=== PATIENT | female | born 2000 | race Caucasian/White ===

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

== ENCOUNTER 2024-12-09 14:52 | Outpatient (CLI) | payer OTHER, SELFPAY ==
[2024-12-09 15:54] LABS: TSH (W/Ref FT4) 3.96 uIU/mL (0.36-3.74)
[2024-12-09 16:15] LABS: FREE T4 0.99 ng/dL (0.76-1.46)
[2024-12-09 22:10] LABS: Estradiol 37 pg/mL (See Note)
[2024-12-09 22:19] LABS: FSH 7.7 mIU/mL (See Note)
== END 2024-12-09 14:53 | disposition home or self-care (01) ==
PROVIDERS: PCP Neuromusculoskeletal Medicine & OMM; Visit Provider Obstetrics & Gynecology
DX: N92.0 Excessive and frequent menstruation with regular cycle (principal); N97.9 Female infertility, unspecified
CPT/HCPCS: 36415; 82670; 83001; 84439; 84443

== ENCOUNTER 2025-03-17 09:08 | Outpatient (CLI) | payer OTHER, SELFPAY ==
[2025-03-17 10:47] LABS: Abs Immature Grans 0.03 10^3/uL (0.0-0.06); HCT 39.8 % (36.0-46.0); HGB 13.7 g/dL (11.2-15.7); Immature Grans % 0.3 %; MCH 29.3 pg (27.0-33.0); MCHC 34.4 % (32.0-36.0); MCV 85 fL (80-95); MPV 10.2 fL (8.0-11.0); Platelet Count 272 10^3/uL (130-400); RBC 4.67 10^6/uL (3.93-5.22); RDW 12.4 % (11.7-14.6); RDW-SD 37.7 fL; WBC 9.71 10^3/uL (4.4-10.8)
[2025-03-17 11:16] LABS: TSH (W/Ref FT4) 0.15 uIU/mL (0.36-3.74)
[2025-03-18 02:26] LABS: HIV-1/2 Ag & Ab Screen Negative (Negative)
[2025-03-18 02:35] LABS: Hepatitis C Ab w Rflx HCV PCR Negative (Negative)
[2025-03-20 08:59] LABS: Rubella IgG Ab (UVM) Negative (See Note)
[2025-03-21 19:07] LABS: Syphilis IgG w/Reflex Nonreactive (Nonreactive)
== END 2025-03-17 09:09 | disposition home or self-care (01) ==
LOC: LBO 09:08
PROVIDERS: Advanced Practice Midwife; PCP Neuromusculoskeletal Medicine & OMM; Visit Provider Advanced Practice Midwife
DX: Z34.91 Encounter for supervision of normal pregnancy, unspecified, first trimester
CPT/HCPCS: 36415; 81220; 81222; 81329; 86787; 86803; 86850; 86900; 86901; 87340; 87389; 84439; 84443; 85025; 86762; 86780

== ENCOUNTER 2025-03-17 09:11 | Outpatient (REF) | payer OTHER, SELFPAY ==
[2025-03-20 12:36] LABS: Chlamydia Result Negative (Negative); GC Result Negative (Negative)
== END 2025-03-17 09:12 | disposition home or self-care (01) ==
LOC: LBN 09:11
PROVIDERS: PCP Neuromusculoskeletal Medicine & OMM; Visit Provider Advanced Practice Midwife
DX: Z34.91 Encounter for supervision of normal pregnancy, unspecified, first trimester
CPT/HCPCS: 87491; 87591; 87086; 87480; 87510; 87660